=== PATIENT | female | born 1950 | race Caucasian/White ===

== ENCOUNTER → 2019-05-11 12:59 | Outpatient (CLI) | payer MEDICARE, OTHER, SELFPAY ==
--- NOTE | 2019-05-11 | DI.MG.S_ITS ---
BILATERAL DIGITAL DIAGNOSTIC MAMMOGRAM 3D/2D: 05/11/2019 CLINICAL: Baseline by default. Left breast pain. No prior exams were available for comparison. There are scattered fibroglandular elements in both breasts. No significant masses, calcifications, or other findings are seen in either breast. IMPRESSION: INCOMPLETE: NEEDS ADDITIONAL IMAGING EVALUATION There is no abnormality seen in the left breast to correspond with the palpable abnormality in the lower inner quadrant, however, ultrasound is recommended. This exam was interpreted at Station ID: [id number]. NOTE: For mammograms, a report in lay terms will be sent to the patient. Approximately 15% of breast malignancies will not be visualized mammographically. In the management of a palpable breast mass, a negative mammogram must not discourage biopsy of a clinically suspicious lesion. Electronically Signed By: Tigre gallagher/jolie:05/11/2019 13:58:51 ACR BI-RADS Category 0: Incomplete [id number]
--- NOTE | 2019-05-11 | DI.US.S_ITS ---
LIMITED ULTRASOUND OF LEFT BREAST AND AXILLA: 05/11/2019 CLINICAL: Focal left breast pain and lump. Comparison is made to exam dated: 05/11/2019 [facility]. Color flow and real-time ultrasound of the left breast 5-6 o'clock, and axilla regions were performed on the areas of interest. There is a 0.9 cm x 0.5 cm x 0.7 cm oval mass with an indistinct margin in the left breast at 5 o'clock anterior depth. This oval mass is hypoechoic. This correlates as palpated and to the reported pain. Color flow imaging demonstrates that there is vascularity present. There also is a 1.1 cm x 0.3 cm x 0.5 cm oval mass with an indistinct margin in the left breast at 6 o'clock anterior depth. This oval mass is hypoechoic. This correlates as palpated and to the reported pain. Color flow imaging demonstrates that there is an adjacent vascularity. No definite abnormal enlarged lymph nodes or abnormal chhaya cortical thickening in the left axilla. IMPRESSION: SUSPICIOUS OF MALIGNANCY The 0.9 cm x 0.5 cm x 0.7 cm oval mass in the left breast at 5 o'clock anterior depth is at a moderate suspicion for malignancy. An ultrasound guided biopsy is recommended. The 1.1 cm x 0.3 cm x 0.5 cm oval mass in the left breast at 6 o'clock anterior depth is at a moderate suspicion for malignancy. An ultrasound guided biopsy is recommended. The findings were discussed with the patient at the conclusion of the study by Dr. Solares. This exam was interpreted at Station ID: [id number]. Electronically Signed By: Tigre gallagher/:05/11/2019 15:03:18 letter sent: Biopsy Required Ultrasound BI-RADS: 4b Moderate suspicion of malignancy
== END ==
PROVIDERS: PCP Physician Assistant Medical; Visit Provider Physician Assistant Medical
DX: N64.4 Mastodynia (principal)
CPT/HCPCS: 76642; 77066; G0279

== ENCOUNTER → 2019-06-11 07:37 | Outpatient (CLI) | payer MEDICARE, OTHER, SELFPAY ==
--- NOTE | 2019-06-11 | DI.US.S_ITS ---
MULTIPLE ULTRASOUND GUIDED BIOPSIES LEFT BREAST USING VACUUM DEVICE WITH MARKING DEVICES INSERTED: 06/11/2019 CLINICAL: 2 left breast masses: #1 6:00 2cmfn 10g Mammotome x 3 with Celero clip #2 5:00 3cmfn 13g Mammotome x 3 with Vision clip. PATIENT CONSENT: Risks (minor bleeding, infection, vasovagal reaction and repeat procedure), benefits and alternatives were explained to the patient and written informed consent was obtained. Correlation is made to exams dated: 05/11/2019 ultrasound and 05/11/2019 [facility]. An ultrasound guided biopsy using real-time ultrasound was performed for the irregular shaped mass located in the left breast at 6 o'clock middle depth. The skin was prepped in the usual manner. Local anesthetic was administered to the access site. The abnormality was approached from the lateral aspect. A biopsy needle was placed adjacent to the abnormality under ultrasound guidance. Once the needle was documented to be in the correct location, three specimens were obtained using the Mammotome biopsy system. A Celero clip was inserted into the biopsy cavity. The specimens were sent to the laboratory for pathological analysis. A second ultrasound guided biopsy using real-time ultrasound was performed for the irregular shaped mass located in the left breast at 5 o'clock posterior depth. The skin was prepped in the usual manner. Local anesthetic was administered to the access site. A small incision was made in the breast. A biopsy needle was placed adjacent to the abnormality under ultrasound guidance. Once the needle was documented to be in the correct location, three specimens were obtained using the Mammotome biopsy system. A Vision clip was inserted into the biopsy cavity. The specimens were sent to the laboratory for pathological analysis. IMPRESSION: ULTRASOUND GUIDED BIOPSY BENIGN Ultrasound guided biopsy of the mass in the left breast at 6 o'clock middle depth was successful. Pathology demonstrates benign fibrocystic changes. Findings are concordant with ultrasound. Ultrasound guided biopsy of the mass in the left breast at 5 o'clock posterior depth was successful. Pathology demonstrates benign fibrocystic changes and adenosis. Findings are concordant with ultrasound. Recommend return to screening mammography. This exam was interpreted at Station ID: [id number]. Clem bernard,elliott/:06/16/2019 17:25:17
--- NOTE | 2019-06-11 | DI.MG.S_ITS ---
UNILATERAL LEFT DIGITAL DIAGNOSTIC MAMMOGRAM POST-NEEDLE BIOPSY: 06/11/2019 CLINICAL: Left breast mass-post clip. Comparison is made to exams dated: 05/11/2019 mammogram and 05/11/2019 [facility]. There are scattered fibroglandular elements in left breast. There is a marker clip in the appropriate position in the left breast at 6 o'clock This marker clip placement is at the biopsy site. There also is a marker clip in the appropriate position in the left breast at 5 o'clock This marker clip placement is at the biopsy site. IMPRESSION: POST PROCEDURE MAMMOGRAM FOR MARKER PLACEMENT There was a successful marker clip placement in the left breast at 6 o'clock There was a successful marker clip placement in the left breast at 5 o'clock This exam was interpreted at Station ID: [id number]. NOTE: For mammograms, a report in lay terms will be sent to the patient. Approximately 15% of breast malignancies will not be visualized mammographically. In the management of a palpable breast mass, a negative mammogram must not discourage biopsy of a clinically suspicious lesion. Electronically Signed By: Clem bernard/:06/11/2019 15:30:53 ACR BI-RADS Category Post-procedure mammogram for marker placement
--- NOTE | 2019-06-11 | PATH_ITS ---
[facility] Accession Number: [id number] . 01 Material submitted: . PART A: breast - LEFT BREAST MASS 6:00 2 CM FN PART B: breast - LEFT BREAST MASS 5:00 3 CM FN . 01 Clinical history: . LEFT BREAST MASS . 01 Diagnosis: A. Left Breast, Mass at 6 o'clock, 2 cm from The Nipple, Biopsy: Breast parenchyma with fibrocystic change including columnar cell change/columnar cell hyperplasia, focal usual ductal hyperplasia, stromal fibrosis, and microcysts. Microcalcifications are present. Negative for atypia, carcinoma in situ, and malignancy. . B. Left Breast, Mass at 5 o'clock, 3 cm from The Nipple, Biopsy: Breast parenchyma with adenosis and fibrocystic change including columnar cell change/columnar cell hyperplasia, usual ductal hyperplasia, stromal fibrosis, apocrine metaplasia, and microcysts. Microcalcifications are present. Negative for atypia, carcinoma in situ, and malignancy. [facility] 06/14/2019 1104 Local . 01 Comment: Clinical and radiographic correlation is necessary. . 01 Electronically signed: . Hyun Calderon MD, Pathologist NPI- [id number] . 01 Gross description: . Received two formalin-filled containers, both labeled with the patient's name: . A. In a container labeled #1, the specimen is received with a plastic filter in container, sample loose in container and consists of multiple yellow-quan portions of tissue which range in size from less than 0.1 cm to 1.3 x 0.3 x 0.2 cm. The specimen is filtered, wrapped, and entirely submitted in cassette A. B. In a container labeled #2, the specimen is received with a plastic filter in container, sample loose in container and consists of multiple pink-quan to yellow-quan, rough, partial, cylindrical-shaped portions of tissue which range in size from 0.2 x 0.1 x 0.1 cm to 1.3 x 0.3 x 0.2 cm. The specimen is entirely submitted in cassette B. . Collection date: 06/11/19. Collection time per containers: #1 - 8:38 a.m.; #2 - 8:50 a.m. Total fixation time: Approximately 14 hours. ([id number]) /BENNY 06/12/2019 0228 Local . 01 Pathologist provided ICD-10: N63.0, N60.19 . 01 CPT . 407709, 353195 Performed at: 01 [facility] [address] [place] [address], [place], [place] [id number] MD Tigre Bauer MD Phone: [phone]
== END ==
PROVIDERS: PCP Physician Assistant Medical; Visit Provider Internal Medicine
DX: N60.22 Fibroadenosis of left breast (principal); N60.82 Other benign mammary dysplasias of left breast; N60.32 Fibrosclerosis of left breast
CPT/HCPCS: 19083; 19084; 77065

== ENCOUNTER 2021-08-20 19:06 | Emergency (ER) | payer MEDICARE, OTHER, SELFPAY ==
[2021-08-20 19:08] VITALS: BP 168/72; PULSE 80; RESP 16; TEMP 36.6; O2SAT 97; BMI 24.3
--- NOTE | 2021-08-20 20:34 | ED_ITS ---
HPI - Eye Problem General Chief complaint: Eye Problems Stated complaint: Possible Rt Retina Detaching Time Seen by Provider: 08/20/21 19:39 Source: patient Mode of arrival: Ambulatory History of Present Illness HPI Narrative: Patient is a 71-year-old female without past medical history presenting with 24 hours of flashing lights in colors is in her right eye. She says yesterday he was working in the [employer] she intermittently looks at her computer and supple throughout the day but not significant long-term use. She started noticing something in her right upper corner field of vision thought it might be a hair control ice wrap it. Was seeing concentric circles and weird flashing lights. She has no pain. No numbness tingling or weakness. She has not had any curtain closing or loss of vision. She does not see double. She continues to have intermittent flashing. With his buys that she come to the ER for further evaluation. She has not had any surgery on her eyes she states the left eye is developing a cataract med as yet be addressed Related Data Home Medications Medication Instructions Recorded Confirmed No Known Home Medications 05/06/19 06/09/19 Allergies Allergy/AdvReac Type Severity Reaction Status Date / Time latex Allergy Swelling Verified 06/09/19 15:55 butorphanol [From Stadol] AdvReac Mild Verified 06/09/19 15:55 minocycline AdvReac Mild Verified 06/09/19 15:55 nitrofurantoin AdvReac Mild Verified 06/09/19 15:55 [From Macrodantin] surgical tape AdvReac Blisters Uncoded 06/09/19 15:55 Review of Systems Review of Systems Narrative: GENERAL: Denies chills,fever HEENT: See HPI RESPIRATORY: Denies dyspnea, cough, wheezing CARDIOVASCULAR: Denies chest pain, palpitations GASTROINTESTINAL: Denies nausea, vomiting MUSCULOSKELETAL: Denies extremity pain, injury SKIN: No rash, no laceration, no pruritus NEUROLOGIC: Denies weakness, dizziness, headache, numbness 8 point review of systems is negative except for those stated above and HPI Patient History Medical History (Updated 08/20/21 @ 21:25 by Trang Dockery DO) Cataracts, bilateral (~2017) Chicken pox (~1952) H/O vaginal delivery Hearing loss Herpes (~1977) Kidney stones (~1987) Measles (~1954) Melanoma (~1996) Mumps (~5) Ovarian cyst (~1972) Vision disorder Surgical History Anesthesia History of tubal ligation (~1983) Family History Father Cancer Mother Patient ambulatory Brother Parkinson's disease Grandfather History of heart disease Grandmother Parkinson's disease Grandfather History of emphysema Grandmother Aspiration of food Family/Other No problems noted. Social History Smoking Status: Never smoker Smoking Status: Never smoker Exam Initial Vital Signs Initial Vital Signs: Vital Signs Temperature 98 F 08/20/21 19:08 Pulse Rate 80 08/20/21 19:08 Respiratory Rate 16 08/20/21 19:08 Blood Pressure 168/72 H 08/20/21 19:08 Pulse Oximetry 97 08/20/21 19:08 GENERAL: Well-appearing, well-nourished and in no acute distress. EYE: EOMI, VIVEK, Pressure in right eye 24 mmHg, pressure left eye 29mmHg, right eye is stained with fluorescein no dye uptake. Both eyes are evaluated ultrasound no abnormality is found CARDIOVASCULAR: peripheral pulses in tact, cap refill <2 sec RESPIRATORY: No respiratory distress, speaks in full sentences without difficulty [ABDOMEN: Soft, nontender, no guarding or rebound] EXTREMITIES: Normal range of motion, no clubbing or edema. Neurovascularly intact NEUROLOGICAL: Cranial nerves II through XII grossly intact. Normal gait and speech. SKIN: Warm, dry, no petechiae, no rashes or lesions. Course Orders Ordered: Discontinued Medications Fluorescein Sodium (Fluorescein 1 Mg Strip) 1 mg EYE-BOTH NOW ONE Stop: 08/20/21 20:14 Proparacaine HCl (Proparacaine 0.5% Ophth Germania) 1 drops EYE-BOTH NOW ONE Stop: 08/20/21 20:14 Vital Signs Vital signs: Vital Signs - 8 hr 08/20/21 19:08 Temperature 98 F Pulse Rate 80 Respiratory Rate 16 Blood Pressure 168/72 H Pulse Oximetry 97 MDM - Eye Problem MDM Narrative Medical decision making narrative: Dr. Maria Victoria alarcon at [place], Does recommend evaluation however thinks probable low risk for retinal detachment probably vitreous humor detachment. the patient having some a transportation like issues. It is recommended that she go by ambulance and lay flat in case it is a retinal detachment. However she refuses to go by ambulance and would like her son to drive for down there to avoid cost. She also has to get her dog squared away before she goes. She is no longer having symptoms at this time. She understands is that if it is a retinal detachment she has potential of permanent blindness. Discharge Plan Departure Patient Disposition: Home Clinical Impression: Detached vitreous humor Instructions: DI for Retinal Detachment Repair Activity Restrictions/Additional Instructions: It is recommended that you have ophthalmology evaluation tonight to ensure do not have a retinal detachment which can cause permanent damage and blindness. Please go immediately to [facility] to see Dr. Waldron, on-call health informatics advisor You may try down to [facility] tomorrow or [facility] it is unclear is when they will be able to see you *Continue to take medications as directed *Follow up with your primary care provider in 2-3 days or call [phone] *Return to ER if you should have loss of vision numbness tingling weakness worsening visual changes or any new, worsening or concerning symptoms Prescriptions: No Action No Known Home Medications 0RF Referrals: Mirtha Perez MD [Physician] - Kip Tan MD [Physician] - All Cifuentes MD [Primary Care Provider] -
== END 2021-08-20 21:50 | disposition home or self-care (01) ==
PROVIDERS: Emergency Provider Emergency Medicine; PCP Internal Medicine
DX: H43.811 Vitreous degeneration, right eye (principal)
CPT/HCPCS: 99282; 99283